=== PATIENT | female | born 1965 | race Two or more races ===

== ENCOUNTER → 2022-12-28 06:52 | Outpatient (CLI) | payer OTHER ==
[2022-12-28 07:36] LABS: HEMATOCRIT 37.2 % (36.0-45.00); HEMOGLOBIN 12.3 g/dL (12.0-15.00); MEAN CELL VOLUME 89.2 fL (80.00-100.00); MEAN CORPUSCULAR HEMOGLOBIN 29.4 pg (27.00-32.0); PLATELET COUNT 181 K/uL (150-450); RED BLOOD COUNT 4.17 M/uL (4.00-6.00); RED CELL DISTRIBUTION WIDTH 13.2 % (11.5-14.5)
[2022-12-28 07:39] LABS: PH,URINE 5.5 (5.0-8.0); URINE APPEARANCE Clear; URINE BILIRRUBIN Negative (NEGATIVE); URINE BLOOD Negative; URINE COLOR Yellow; URINE GLUCOSE Negative (NEGATIVE); URINE LEUKOCYTE Small; URINE NITRATE Negative; URINE PROTEIN Negative (NEGATIVE); URINE UROBILINOGEN 0.2 E.U./dl
[2022-12-28 07:45] LABS: URINE BACTERIA 134.7 uL (0.0-1933); URINE EPITHELIAL CELLS 11.7 uL (0.0-38.8); URINE RBC 6.8 uL (0.0-20.8); URINE WBC 4.7 uL (0.0-23.2)
[2022-12-28 08:06] LABS: ALBUMIN 3.8 gm/dL (3.4-5.0); BILIRUBIN TOTAL 0.33 mg/dL (0.3-1.2); CALCIUM 9.1 mg/dL (8.5-10.1); CHOL HDL RATIO 2.2 (0-5.0); CREATININE SERUM 0.68 mg/dL (0.55-1.02); GFR 88.87; GLOBULINA 3.2 G/DL (2.4-3.5); POTASSIUM 4.57 mEq/L (3.5-5.1); T4 TOTAL 7.89 UG/DL (4.8-13.9); TSH 1.76 uIU/mL (0.358-3.74)
[2022-12-28 09:38] LABS: T3 TOTAL 1.33 ng/ml (0.846-2.02); VITAMIN D3 25 HYDROXY 52.71 ng/ml (30-120)
== END | disposition home or self-care (01) ==
LOC: LAB 06:52
PROVIDERS: ATTEND Obstetrics & Gynecology
DX: D50.8 Other iron deficiency anemias (principal); N39.0 Urinary tract infection, site not specified; E07.89 Other specified disorders of thyroid; I11.9 Hypertensive heart disease without heart failure; E78.3 Hyperchylomicronemia; E55.9 Vitamin D deficiency, unspecified; N95.1 Menopausal and female climacteric states; L68.0 Hirsutism

== ENCOUNTER 2022-12-28 07:23 | Outpatient (CLI) | payer OTHER | END 2022-12-28 07:36 | disposition home or self-care (01) | LOC: MAMO-SONO 07:23 | PROVIDERS: ATTEND Obstetrics & Gynecology | DX: N60.21 Fibroadenosis of right breast (principal); N60.22 Fibroadenosis of left breast; Z12.31 Encounter for screening mammogram for malignant neoplasm of breast ==

== ENCOUNTER 2023-06-18 07:24 | Outpatient (CLI) | payer OTHER ==
[2023-06-18 08:09] LABS: PH,URINE 5.5 (5.0-8.0); URINE APPEARANCE Cloudy; URINE BILIRRUBIN Negative (NEGATIVE); URINE BLOOD Negative; URINE COLOR Yellow; URINE GLUCOSE Negative (NEGATIVE); URINE LEUKOCYTE Moderate; URINE NITRATE Negative; URINE PROTEIN Negative (NEGATIVE); URINE UROBILINOGEN 0.2 E.U./dl
[2023-06-18 08:14] LABS: URINE BACTERIA 564.4 uL (0.0-1933); URINE RBC 8.9 uL (0.0-20.8); URINE WBC 156.9 uL (0.0-23.2)
[2023-06-18 08:59] LABS: ALBUMIN 4.1 gm/dL (3.4-5.0); BILIRUBIN TOTAL 0.43 mg/dL (0.3-1.2); CALCIUM 9.8 mg/dL (8.5-10.1); CHOL HDL RATIO 1.9 (0-5.0); CREATININE SERUM 0.74 mg/dL (0.55-1.02); GFR 80.33; GLOBULINA 3.2 G/DL (2.4-3.5); POTASSIUM 4.54 mEq/L (3.5-5.1); TOTAL PROTEIN 7.3 gm/dL (6.4-8.2); TSH 1.23 uIU/mL (0.358-3.74)
[2023-06-18 09:02] LABS: HEMATOCRIT 37.6 % (36.0-45.00); HEMOGLOBIN 12.6 g/dL (12.0-15.00); MEAN CELL VOLUME 88.2 fL (80.00-100.00); MEAN CORPUSCULAR HEMOGLOBIN 29.5 pg (27.00-32.0); MEAN CORPUSCULAR HGB CONC 33.5 g/dl (32.0-36.0); PLATELET COUNT 175 K/uL (150-450); RED BLOOD COUNT 4.27 M/uL (4.00-6.00); RED CELL DISTRIBUTION WIDTH 13.4 % (11.5-14.5)
== END 2023-06-18 07:32 | disposition home or self-care (01) ==
LOC: LAB 07:24
DX: F17.210 Nicotine dependence, cigarettes, uncomplicated (principal); D64.9 Anemia, unspecified; E55.9 Vitamin D deficiency, unspecified; R80.9 Proteinuria, unspecified; I10 Essential (primary) hypertension; E78.00 Pure hypercholesterolemia, unspecified; R94.6 Abnormal results of thyroid function studies; N39.0 Urinary tract infection, site not specified; E11.9 Type 2 diabetes mellitus without complications

== ENCOUNTER → 2024-01-14 07:42 | Outpatient (CLI) | payer OTHER ==
[2024-01-14 09:23] LABS: HEMATOCRIT 37.8 % (36.0-45.00); HEMOGLOBIN 12.6 g/dL (12.0-15.00); MEAN CELL VOLUME 89.4 fL (80.00-100.00); MEAN CORPUSCULAR HEMOGLOBIN 29.9 pg (27.00-32.0); MEAN CORPUSCULAR HGB CONC 33.4 g/dl (32.0-36.0); PLATELET COUNT 164 K/uL (150-450); RED BLOOD COUNT 4.23 M/uL (4.00-6.00); RED CELL DISTRIBUTION WIDTH 13.2 % (11.5-14.5)
[2024-01-14 10:02] LABS: ALBUMIN 3.8 gm/dL (3.4-5.0); BILIRUBIN TOTAL 0.46 mg/dL (0.3-1.2); CHOL HDL RATIO 1.9 (0-5.0); CREATININE SERUM 0.6 mg/dL (0.55-1.02); GFR 102.32; GLOBULINA 3.1 G/DL (2.4-3.5); PHOSPHOROUS 3.9 mg/dL (2.5-4.9); POTASSIUM 4.3 mEq/L (3.5-5.1); T4 TOTAL 7.84 UG/DL (4.8-13.9); TOTAL PROTEIN 6.9 gm/dL (6.4-8.2); TSH 1.15 uIU/mL (0.358-3.74)
[2024-01-16 11:14] LABS: T3 TOTAL 1.18 ng/ml (0.846-2.02); VITAMIN D3 25 HYDROXY 48.64 ng/ml (30-120)
[2024-01-18 15:04] LABS: a:g ratio 1.4 (0.7-1.7); alpha 1 g 0.2 g/dL (0.0-0.4); alpha 2 0.6 g/dL (0.4-1.0); gamma g 0.9 g/dL (0.4-1.8); globulin t 2.7 g/dL (2.2-3.9); m spike 0.2 g/dL (Not Observed); prot total 6.5 g/dL (6.0-8.5)
== END | disposition home or self-care (01) ==
LOC: LAB 07:42
PROVIDERS: ATTEND Internal Medicine
DX: D47.2 Monoclonal gammopathy (principal); D80.1 Nonfamilial hypogammaglobulinemia; D50.8 Other iron deficiency anemias; N39.0 Urinary tract infection, site not specified; E07.89 Other specified disorders of thyroid; I11.9 Hypertensive heart disease without heart failure; E78.3 Hyperchylomicronemia; E55.9 Vitamin D deficiency, unspecified; N95.1 Menopausal and female climacteric states; L68.0 Hirsutism; Z01.419 Encounter for gynecological examination (general) (routine) without abnormal findings; F17.210 Nicotine dependence, cigarettes, uncomplicated; E78.00 Pure hypercholesterolemia, unspecified; R94.6 Abnormal results of thyroid function studies

== ENCOUNTER 2024-01-23 09:10 | Outpatient (CLI) | payer OTHER | END 2024-01-23 09:20 | disposition home or self-care (01) | LOC: MAMO-SONO 09:10 | PROVIDERS: ATTEND Obstetrics & Gynecology | DX: N60.21 Fibroadenosis of right breast (principal); N60.22 Fibroadenosis of left breast ==

== ENCOUNTER → 2024-01-23 10:23 | Outpatient (CLI) | payer OTHER | END | disposition home or self-care (01) | LOC: NUCLEAR 10:23 | PROVIDERS: ATTEND Obstetrics & Gynecology | DX: M81.0 Age-related osteoporosis without current pathological fracture (principal) ==

== ENCOUNTER 2024-05-14 07:44 | Outpatient (CLI) | payer OTHER ==
[2024-05-14 08:59] LABS: URINE APPEARANCE Clear; URINE BILIRRUBIN Negative (NEGATIVE); URINE BLOOD Negative; URINE COLOR Yellow; URINE GLUCOSE Negative (NEGATIVE); URINE KETONE Negative (NEGATIVE); URINE LEUKOCYTE Negative; URINE NITRATE Negative; URINE PROTEIN Negative (NEGATIVE); URINE UROBILINOGEN 0.2 E.U./dl
[2024-05-14 09:05] LABS: HEMATOCRIT 37.8 % (36.0-45.00); HEMOGLOBIN 12.9 g/dL (12.0-15.00); MEAN CELL VOLUME 88.7 fL (80.00-100.00); MEAN CORPUSCULAR HEMOGLOBIN 30.2 pg (27.00-32.0); MEAN CORPUSCULAR HGB CONC 34.1 g/dl (32.0-36.0); PLATELET COUNT 185 K/uL (150-450); RED BLOOD COUNT 4.26 M/uL (4.00-6.00); RED CELL DISTRIBUTION WIDTH 13.3 % (11.5-14.5); URINE BACTERIA 57.5 uL (0.0-1933); URINE CAST 1.47 uL (0.0-1.40); URINE EPITHELIAL CELLS 7.9 uL (0.0-38.8); URINE RBC 7.5 uL (0.0-20.8)
[2024-05-14 09:53] LABS: ALBUMIN 3.9 gm/dL (3.4-5.0); CALCIUM 9.3 mg/dL (8.5-10.1); CREATININE SERUM 0.6 mg/dL (0.55-1.02); GFR 101.97; PHOSPHOROUS 3.6 mg/dL (2.5-4.9); POTASSIUM 4.38 mEq/L (3.5-5.1)
[2024-05-14 10:05] LABS: FERRITIN 41.7 NG/ML (8-252)
== END 2024-05-14 07:48 | disposition home or self-care (01) ==
LOC: LAB 07:44
DX: E55.9 Vitamin D deficiency, unspecified (principal); R80.9 Proteinuria, unspecified; E78.2 Mixed hyperlipidemia; E08.9 Diabetes mellitus due to underlying condition without complications; D50.9 Iron deficiency anemia, unspecified; N18.1 Chronic kidney disease, stage 1; D72.819 Decreased white blood cell count, unspecified; I11.9 Hypertensive heart disease without heart failure; E78.00 Pure hypercholesterolemia, unspecified

== ENCOUNTER 2024-05-14 08:44 | Outpatient (CLI) | payer OTHER | END 2024-05-14 08:45 | disposition home or self-care (01) | LOC: RAD 08:44 | PROVIDERS: ATTEND Internal Medicine | DX: F17.210 Nicotine dependence, cigarettes, uncomplicated (principal); N20.0 Calculus of kidney; N18.1 Chronic kidney disease, stage 1 ==

== ENCOUNTER 2024-06-23 08:22 | Outpatient (CLI) | payer OTHER ==
[2024-06-23 10:29] LABS: HEMATOCRIT 39.1 % (36.0-45.00); MEAN CELL VOLUME 89.2 fL (80.00-100.00); MEAN CORPUSCULAR HEMOGLOBIN 29.6 pg (27.00-32.0); MEAN CORPUSCULAR HGB CONC 33.2 g/dl (32.0-36.0); PLATELET COUNT 171 K/uL (150-450); RED BLOOD COUNT 4.38 M/uL (4.00-6.00); RED CELL DISTRIBUTION WIDTH 13.2 % (11.5-14.5)
[2024-06-23 10:50] LABS: BILIRUBIN TOTAL 0.45 mg/dL (0.3-1.2); CALCIUM 9.6 mg/dL (8.5-10.1); CREATININE SERUM 0.57 mg/dL (0.55-1.02); GFR 108.19; GLOBULINA 3.2 G/DL (2.4-3.5); POTASSIUM 4.5 mEq/L (3.5-5.1); TOTAL PROTEIN 7.2 gm/dL (6.4-8.2)
== END 2024-06-23 08:23 | disposition home or self-care (01) ==
LOC: LAB 08:22
PROVIDERS: ATTEND Internal Medicine
DX: D47.2 Monoclonal gammopathy (principal)

== ENCOUNTER 2024-08-25 08:33 | Outpatient (CLI) | payer OTHER ==
[2024-08-25 11:45] LABS: ALBUMIN 3.8 gm/dL (3.4-5.0); BILIRUBIN TOTAL 0.51 mg/dL (0.3-1.2); CALCIUM 9.7 mg/dL (8.5-10.1); CHOL HDL RATIO 1.9 (0-5.0); CREATININE SERUM 0.63 mg/dL (0.55-1.02); GFR 96.39; GLOBULINA 3.3 G/DL (2.4-3.5); POTASSIUM 4.6 mEq/L (3.5-5.1); TOTAL PROTEIN 7.1 gm/dL (6.4-8.2); TSH 1.27 uIU/mL (0.358-3.74)
== END 2024-08-25 08:40 | disposition home or self-care (01) ==
LOC: LAB 08:33
DX: F17.210 Nicotine dependence, cigarettes, uncomplicated (principal); I10 Essential (primary) hypertension; E78.00 Pure hypercholesterolemia, unspecified; R80.9 Proteinuria, unspecified; R94.6 Abnormal results of thyroid function studies